=== PATIENT | male | born 1975 | race Asian ===

== ENCOUNTER 2018-05-11 10:30 | Emergency (ER) | payer OTHER ==
--- NOTE | 2018-05-11 12:13 | ED Physician Documentation ---
PD HPI UPPER EXT INJURY - Stated complaint Stated Complaint: R ELBOW LUMP - Chief complaint Chief Complaint: Ext Problem - History obtained from History obtained from: Patient - History of Present Illness Location: Right, Elbow (Without specific trauma he noticed a lump over the right elbow starting yesterday. There is no pain except if he smacks it on something. He has never had this before. No fevers.) Review of Systems Constitutional: denies: Fever, Chills Eyes: denies: Loss of vision Cardiac: reports: Reviewed and negative Respiratory: reports: Reviewed and negative PD PAST MEDICAL HISTORY - Past Medical History Cardiovascular: Hypertension GI: GI bleed, Ulcers - Past Surgical History Past Surgical History: Yes General: EGD - Present Medications Home Medications: Ambulatory Orders Medication Instructions Recorded Confirmed Ibuprofen [Motrin] 800 mg PO Q8H PRN #30 tablet 05/11/18 Iron Tabs 50 mg 05/11/18 Something For Stomach 05/11/18 - Allergies Allergies/Adverse Reactions: Allergies Allergy/AdvReac Type Severity Reaction Status Date / Time No Known Drug Allergies Allergy Verified 05/11/18 10:42 - Social History Does the pt smoke?: No Smoking Status: Never smoker Does the pt drink ETOH?: No Does the pt have substance abuse?: No - Immunizations Immunizations are current?: Yes PD ED PE NORMAL - Vitals Vital signs reviewed: Yes - General General: Alert and oriented X 3, No acute distress - Extremities Extremities: Other (Over the right elbow he has mild case of olecranon bursitis that does not appear in at all inflamed or red or warm. He has good range of motion.) - Neuro Neuro: Alert and oriented X 3, Normal speech Results - Vitals Vitals: Vital Signs - 24 hr 05/11/18 10:40 Temperature 36.0 C L Heart Rate 55 L Respiratory 16 Rate Blood Pressure 133/85 H O2 Saturation 100 Oxygen O2 Source Room air PD MEDICAL DECISION MAKING - ED course ED course: He has mild case of noninflamed olecranon bursitis. We discussed options of either incision and drainage, needle aspiration, or conservative care with an Shiv wrap and watchful waiting and he opted for the latter. - Sepsis Event Vital Signs: Vital Signs - 24 hr 05/11/18 10:40 Temperature 36.0 C L Heart Rate 55 L Respiratory 16 Rate Blood Pressure 133/85 H O2 Saturation 100 Oxygen O2 Source Room air Departure - Departure Disposition: 01 Home, Self Care Clinical Impression: Olecranon bursitis, right elbow Condition: Good Record reviewed to determine appropriate education?: Yes Instructions: ED Bursitis Elbow Olecranon Prescriptions: Ibuprofen [Motrin] 800 mg PO Q8H PRN #30 tablet PRN Reason: PAIN &/OR FEVER Comments: If it becomes red, warm, you run a fever, or painful when it is not touching anything, please return for reevaluation. Discharge Date/Time: 05/11/18 12:30
[2018-05-11 12:14] VITALS: BP 133/85
== END 2018-05-11 12:30 | disposition home or self-care (01) ==
LOC: EDBD → ED 10:30 → EDBD 10:30 → ED 12:30
DX: M70.21 Olecranon bursitis, right elbow (principal); I10 Essential (primary) hypertension
CPT/HCPCS: 99283